=== PATIENT | male | born 1945 | race African-American/Black ===

== ENCOUNTER 2020-02-10 22:43 | Emergency (ER) | payer OTHER ==
[~2020-02-10] VITALS: Ht 167.6 cm; Wt 127.0 kg
[2020-02-10] MEDS ORDERED: KETOROLAC 60MG/2ML VIAL IM ONE (23:15)
[2020-02-10] MEDS ORDERED: PREDNISONE 20MG TABLET PO ONE (23:15)
[2020-02-10 23:45] LABS: CHLORIDE 110 mEq/L (98-107)
[2020-02-10 23:46] LABS: HEMATOCRIT 31.2 % (42.0-52.0); HEMOGLOBIN 10.6 g/dL (14.0-18.0); MEAN CORPUSCULAR HEMOGLOBIN 29.4 pg (28.0-32.0); MEAN CORPUSCULAR VOLUME 86.7 fL (80.0-94.0); PLATELET 196 x1000/uL (130-400); RED CELL DISTRIBUTION WIDTH 15.3 % (11.6-14.6)
[2020-02-11 03:00] VITALS: BP 145/87
== END 2020-02-11 03:43 | disposition home or self-care (01) ==
LOC: ER 22:43
DX: R51.9 Headache, unspecified (principal); I10 Essential (primary) hypertension; Z95.1 Presence of aortocoronary bypass graft; Z86.73 Personal history of transient ischemic attack (TIA), and cerebral infarction without residual deficits
CPT/HCPCS: 36415; 70450; 80053; 85027; 85651; 86140; 93005; 96372; 99285; J1885; J7512

== ENCOUNTER 2022-10-24 08:07 | Inpatient (IN) | payer MEDICARE, OTHER ==
[~2022-10-24] VITALS: Ht 350.5 cm; Wt 122.9 kg
[~2022-10-24 08:07] MED LIST: AMLO5TAB4 MT; TEMA15CA MT; WARF-53 MT
[2022-10-24 09:08] LABS: BASOPHILS % 1.1 % (0.0-2.0); EOSINOPHILS % 0.7 % (0.0-5.0); HEMATOCRIT. 37.4 % (42.0-52.0); HEMOGLOBIN. 12.3 g/dL (14.0-18.0); LYMPHOCYTES % 22.8 % (20.0-50.0); MEAN CORPUSCULAR HEMOGLOBIN 28.2 pg (28.0-32.0); MEAN CORPUSCULAR VOLUME 86.1 fL (80.0-94.0); MEAN PLATELET VOLUME 7.5 fl (7.4-10.4); MONOCYTES % 12.6 % (2.0-8.0); NEUTROPHILS % 62.8 % (40.0-76.0); PLATELET 216 x1000/uL (130-400); RED BLOOD CELL COUNT 4.35 mill/uL (4.7-6.1); RED CELL DISTRIBUTION WIDTH 15.5 % (11.6-14.6)
[2022-10-24 09:32] LABS: CLARITY URINE CLEAR (CLEAR); COLOR URINE YELLOW (YELLOW); KETONES URINE NEGATIVE (NEGATIVE); LEUKOCYTE ESTERASE URINE NEGATIVE (NEGATIVE); NITRITE URINE NEGATIVE (NEGATIVE); OCCULT BLOOD URINE NEGATIVE (NEGATIVE); PH URINE 5.5 (4.5-8.0); PROTEIN URINE 1+ (NEGATIVE); SPECIFIC GRAVITY URINE 1.006 (1.005-1.030); UROBILINOGEN URINE 0.2 E.U./dL (0.2-1.0)
[2022-10-24] MEDS ORDERED: HYDRALAZINE 20MG/ML VIAL IV ONE (10:00)
[2022-10-24 10:26] LABS: CHLORIDE 106 mEq/L (98-107)
[2022-10-24] MEDS ORDERED: ENOXAPARIN 80MG/0.8ML SYR SUBCUT ONE (12:00)
[2022-10-24] MEDS ORDERED: NITROGLYCERIN 0.4MG TABLET SL SL PRN (13:00)
[2022-10-24] MEDS ORDERED: CLONIDINE 0.1MG TABLET PO PRN (13:00)
[2022-10-24] MEDS ORDERED: IPRATROPIUM/ALBUTEROL 0.5-3(2.5)MG/3ML NEB NEB PRN (13:00)
[2022-10-24] MEDS ORDERED: DOCUSATE SODIUM 100MG CAPSULE PO PRN (13:00)
[2022-10-24] MEDS ORDERED: GUAIFENESIN 200MG/10ML SUGAR FREE UDC PO PRN (13:00)
[2022-10-24] MEDS ORDERED: TRAMADOL 50MG TABLET PO PRN (13:00)
[2022-10-24] MEDS ORDERED: ONDANSETRON HCL 4MG/2ML INJ IV PRN (13:00)
[2022-10-24] MEDS ORDERED: ACETAMINOPHEN 325MG TABLET PO PRN ×2 (13:00)
[2022-10-24] MEDS ORDERED: MAGNESIUM/ALUMINUM HYDROXIDE/SIMETHICONE 30ML UDC PO PRN (13:00)
[2022-10-24] MEDS: AMLODIPINE 5MG TABLET PO SCH (13:54)
[2022-10-24 16:00] VITALS: BP 144/88; PULSE 70; RESP 20; TEMP 98.1
[2022-10-24 17:36] LABS: T4 FREE 0.85 ng/dL (0.76-1.46)
[2022-10-24 17:51] LABS: VITAMIN B12 SERUM 344 pg/mL (211-911)
[2022-10-24] MEDS: NITROGLYCERIN OINT 1GM/INCH UDPKT TD SCH ×2 (19:29→21:39)
[2022-10-24] MEDS: ENOXAPARIN 40MG/0.4ML SYR SUBCUT SCH (19:30)
[2022-10-24 20:00] VITALS: BP 123/63; PULSE 71; RESP 20; TEMP 97.9
[2022-10-24] MEDS ORDERED: ZOLPIDEM TARTRATE 5MG TABLET PO PRN (21:00)
[2022-10-24 21:39] LABS: CREATINE KINASE 66 IU/L (39-308); CREATINE KINASE MB FRACTION < 1.0 ng/mL (0.5-3.6)
[2022-10-24] MEDS: FAMOTIDINE 20MG TABLET PO SCH (21:39)
[2022-10-24] MEDS ORDERED: TRAM50TA3 PO (22:58)
[2022-10-24] MEDS ORDERED: ATOR10TA69 PO (22:58)
[2022-10-24] MEDS ORDERED: ONDA4TAB50 PO (22:58)
[2022-10-24] MEDS ORDERED: TRAZ-251 PO (22:58)
[2022-10-24] MEDS ORDERED: FURO-151 PO (22:58)
[2022-10-24] MEDS ORDERED: NALO4SPR NS (22:58)
[2022-10-24] MEDS ORDERED: BISO5TAB13 PO (22:58)
[2022-10-24] MEDS ORDERED: WARF-53 PO (22:58)
[2022-10-24] MEDS ORDERED: HYDR-4134 PO (22:58)
[2022-10-25] VITALS (7 sets, daily range): BP systolic 120–148; BP diastolic 59–85; PULSE 70–73; RESP 17–20; TEMP 96.9–98.6; O2SAT 99
[2022-10-25] MEDS: FUROSEMIDE 40MG/4ML VIAL IVP SCH ×4 (00:34→17:08)
[2022-10-25 01:07] LABS: CREATINE KINASE 57 IU/L (39-308); CREATINE KINASE MB FRACTION < 1.0 ng/mL (0.5-3.6)
[2022-10-25 01:12] LABS: HEPATITIS B SURFACE ANTIGEN NEGATIVE
[2022-10-25 03:28] LABS: *AMPHETAMINES SCREEN URINE NEGATIVE (NEGATIVE); *BARBITURATES SCREEN URINE NEGATIVE (NEGATIVE); *BENZODIAZEPINES SCREEN URINE NEGATIVE (NEGATIVE); *COCAINE SCREEN URINE NEGATIVE (NEGATIVE); CANNABINOID URINE SCREEN NEGATIVE (NEGATIVE); METHADONE URINE SCREEN NEGATIVE (NEGATIVE); OPIATES URINE SCREEN NEGATIVE (NEGATIVE); PHENCYCLIDINE URINE SCREEN NEGATIVE (NEGATIVE)
[2022-10-25] MEDS: ENOXAPARIN 40MG/0.4ML SYR SUBCUT SCH (05:33)
[2022-10-25] MEDS: NITROGLYCERIN OINT 1GM/INCH UDPKT TD SCH ×3 (05:34→22:03)
[2022-10-25 07:01] LABS: BASOPHILS % 0.7 % (0.0-2.0); EOSINOPHILS % 1.2 % (0.0-5.0); HEMATOCRIT. 35.3 % (42.0-52.0); LYMPHOCYTES % 26.4 % (20.0-50.0); MEAN CORPUSCULAR HEMOGLOBIN 29.1 pg (28.0-32.0); MEAN CORPUSCULAR VOLUME 85.8 fL (80.0-94.0); MEAN PLATELET VOLUME 7.8 fl (7.4-10.4); MONOCYTES % 14.9 % (2.0-8.0); NEUTROPHILS % 56.8 % (40.0-76.0); PLATELET 222 x1000/uL (130-400); RED BLOOD CELL COUNT 4.12 mill/uL (4.7-6.1); RED CELL DISTRIBUTION WIDTH 15.5 % (11.6-14.6)
[2022-10-25 07:07] LABS: INR 1.9; PROTHROMBIN TIME 19.3 sec (9.6-11.0)
[2022-10-25 07:39] LABS: CHLORIDE 103 mEq/L (98-107)
[2022-10-25 08:06] LABS: PHOSPHORUS 2.9 mg/dL (2.5-4.9)
[2022-10-25] MEDS: FAMOTIDINE 20MG TABLET PO SCH ×2 (08:46→21:58)
[2022-10-25] MEDS: AMLODIPINE 5MG TABLET PO SCH (08:47)
[2022-10-25] MEDS ORDERED: ASPIRIN 325MG EC TABLET PO SCH (09:00)
[2022-10-25] MEDS ORDERED: WARFARIN SODIUM 7.5MG TABLET PO SCH (18:00)
[2022-10-25] MEDS ORDERED: NALOXONE HCL 0.4MG/ML VIAL IV PRN (20:45)
== END 2022-10-26 00:01 | disposition short-term general hospital (02) | DRG 305 ==
LOC: ER 08:34 → 8WST 12:16 → EDBEDREQ 12:42 → EDBEDREQTM 12:42
PROVIDERS: ADMIT Internal Medicine; ATTEND Internal Medicine
DX: I16.1 Hypertensive emergency (principal); E87.1 Hypo-osmolality and hyponatremia; I48.19 Other persistent atrial fibrillation; I48.92 Unspecified atrial flutter; Z68.1 Body mass index [BMI] 19.9 or less, adult; I42.9 Cardiomyopathy, unspecified; I24.8 Other forms of acute ischemic heart disease; G47.33 Obstructive sleep apnea (adult) (pediatric); I10 Essential (primary) hypertension; N28.1 Cyst of kidney, acquired; Z20.822 Contact with and (suspected) exposure to COVID-19; G47.00 Insomnia, unspecified; I35.9 Nonrheumatic aortic valve disorder, unspecified; F51.04 Psychophysiologic insomnia; E66.01 Morbid (severe) obesity due to excess calories; I25.2 Old myocardial infarction; Z79.01 Long term (current) use of anticoagulants; Z79.899 Other long term (current) drug therapy; Z95.0 Presence of cardiac pacemaker; Z86.73 Personal history of transient ischemic attack (TIA), and cerebral infarction without residual deficits; Z95.2 Presence of prosthetic heart valve; Z87.01 Personal history of pneumonia (recurrent)
CPT/HCPCS: 36415; 71045; 76770; 80053; 80061; 80305; 81003; 82550; 82553; 82607; 82746; 82962; 83036; 83540; 83550; 83735; 83880; 84100; 84439; 84443; 84484; 85025; 86803; 87340; 87426; 93005; 93306; 93970; 99285; J0360; J1650; J1940

== ENCOUNTER 2022-12-31 15:54 | Emergency (ER) | payer OTHER ==
[~2022-12-31] VITALS: Ht 170.2 cm; Wt 87.0 kg
[~2022-12-31 15:54] MED LIST changes: +ATOR10TA69 PO; +BISO5TAB13 PO; +HYDR-4134 PO; +ISOS20TA8 PO; +NALO4SPR NS; +ONDA4TAB50 PO; -TEMA15CA MT; +TEMA15CA PO; +TRAZ-251 PO; -WARF-53 MT; +WARF-53 PO; +ZOLP5TAB8 PO
[2022-12-31 15:56] VITALS: O2SAT 99
[2022-12-31] MEDS ORDERED: MECLIZINE 25MG TABLET PO NR (17:45)
[2022-12-31] MEDS ORDERED: ONDANSETRON 4MG ODT PO ONE (17:45)
[2022-12-31 18:32] LABS: BASOPHILS % 0.8 % (0.0-2.0); EOSINOPHILS % 0.3 % (0.0-5.0); HEMOGLOBIN. 12.8 g/dL (14.0-18.0); LYMPHOCYTES % 24.6 % (20.0-50.0); MEAN CORPUSCULAR HEMOGLOBIN 28.3 pg (28.0-32.0); MEAN CORPUSCULAR HGB CONC 32.8 g/dL (31.0-37.0); MEAN CORPUSCULAR VOLUME 86.3 fL (80.0-94.0); MEAN PLATELET VOLUME 7.5 fl (7.4-10.4); MONOCYTES % 10.3 % (2.0-8.0); PLATELET 233 x1000/uL (130-400); RED BLOOD CELL COUNT 4.52 mill/uL (4.7-6.1); RED CELL DISTRIBUTION WIDTH 14.9 % (11.6-14.6)
[2022-12-31 18:57] LABS: CHLORIDE 98 mEq/L (98-107); INDEX HEMOLYSI 1 (1-3); INDEX ICTERIC 1 (1-4); INDEX LIPEMIC 1 (1-3); POTASSIUM 3.4 mEq/L (3.5-5.1); SODIUM 129 mEq/L (136-145)
[2022-12-31 19:05] LABS: ALANINE AMINOTRANSFERASE 21 IU/L (13-61); ALBUMIN 3.2 g/dL (3.4-5.0); ASPARTATE AMINOTRANSFERASE 20 IU/L (15-37); BILIRUBIN TOTAL 0.5 mg/dL (0.1-1.0); CARBON DIOXIDE 23 mEq/L (21-32); CREATININE 1.6 mg/dL (0.6-1.3); GLUCOSE 105 mg/dL (70-105); PROTEIN TOTAL 8.9 g/dL (6.0-8.3); UREA NITROGEN BLOOD 17 mg/dL (7-21)
[2022-12-31 19:12] LABS: CALCIUM 8.4 mg/dL (8.5-10.1)
[2022-12-31 19:15] LABS: TROPONIN I HIGH SENSITIVITY 387 ng/L (<78)
[2022-12-31] MEDS ORDERED: TRAMADOL HCL/ACETAMINOPHEN 37.5/325MG TABLET PO PRN (19:45)
[2022-12-31] MEDS ORDERED: MECLIZINE 12.5MG TABLET PO NR (19:45)
[2022-12-31] MEDS ORDERED: MECL-299 MT (20:45)
[2022-12-31 21:00] VITALS: BP 140/53; PULSE 68; RESP 16; TEMP 98.8
== END 2022-12-31 21:10 | disposition home or self-care (01) ==
LOC: ER 15:54
DX: R42 Dizziness and giddiness (principal); R11.0 Nausea; R51.9 Headache, unspecified; I10 Essential (primary) hypertension; I25.2 Old myocardial infarction; Z86.73 Personal history of transient ischemic attack (TIA), and cerebral infarction without residual deficits; F12.10 Cannabis abuse, uncomplicated
CPT/HCPCS: 99285; 71045; 80053; 85025; 84484; 36415; 93005; J8597 ×2; Q0162

== ENCOUNTER 2023-04-01 23:40 | Emergency (ER) | payer OTHER ==
[~2023-04-01] VITALS: Ht 172.7 cm; Wt 99.0 kg
[~2023-04-01 23:40] MED LIST changes: +MECL-299 MT
[2023-04-01 23:41] VITALS: O2SAT 100
[2023-04-02] MEDS ORDERED: ACETAMINOPHEN 325MG TABLET PO STA (01:57)
[2023-04-02] MEDS ORDERED: LACTATED RINGERS 500 ML IV SCH (02:00)
[2023-04-02] MEDS ORDERED: METOCLOPRAMIDE HCL 10MG/2ML VIAL IV ONE (02:00)
[2023-04-02 02:40] VITALS: TEMP 98.5
[2023-04-02 02:40] LABS: BASOPHILS % 1.1 % (0.0-2.0); EOSINOPHILS % 0.5 % (0.0-5.0); HEMATOCRIT. 38.7 % (42.0-52.0); HEMOGLOBIN. 12.5 g/dL (14.0-18.0); LYMPHOCYTES % 24.4 % (20.0-50.0); MEAN CORPUSCULAR HEMOGLOBIN 28.6 pg (28.0-32.0); MEAN CORPUSCULAR HGB CONC 32.3 g/dL (31.0-37.0); MEAN CORPUSCULAR VOLUME 88.5 fL (80.0-94.0); MEAN PLATELET VOLUME 7.8 fl (7.4-10.4); MONOCYTES % 12.6 % (2.0-8.0); NEUTROPHILS % 61.4 % (40.0-76.0); PLATELET 230 x1000/uL (130-400); RED BLOOD CELL COUNT 4.38 mill/uL (4.7-6.1); WHITE BLOOD COUNT 5.9 x1000/uL (4.5-11.0)
[2023-04-02 02:46] LABS: ALANINE AMINOTRANSFERASE 22 IU/L (10-49); ASPARTATE AMINOTRANSFERASE 25 IU/L (<34); BILIRUBIN TOTAL 0.2 mg/dL (0.1-1.0); CALCIUM 9.1 mg/dL (8.7-10.4); CARBON DIOXIDE 22 mEq/L (21-32); CHLORIDE 109 mEq/L (98-107); CREATININE 1.5 mg/dL (0.6-1.3); GLUCOSE 121 mg/dL (70-105); POTASSIUM 4.3 mEq/L (3.5-5.1); PROTEIN TOTAL 8.1 g/dL (6.0-8.3); SODIUM 135 mEq/L (136-145); UREA NITROGEN BLOOD 17 mg/dL (9-23)
[2023-04-02 04:15] VITALS: BP 193/89; PULSE 70; RESP 16
== END 2023-04-02 05:35 | disposition home or self-care (01) ==
LOC: ER 23:40
DX: R51.9 Headache, unspecified (principal); I11.9 Hypertensive heart disease without heart failure; I25.2 Old myocardial infarction; Z86.73 Personal history of transient ischemic attack (TIA), and cerebral infarction without residual deficits
CPT/HCPCS: 99285; 96374; 96361; 70450; 80053; 85025; 36415; J2765

== ENCOUNTER 2023-11-06 16:57 | Emergency (ER) | payer MEDICARE, OTHER ==
[~2023-11-06] VITALS: Ht 167.6 cm; Wt 100.0 kg
[~2023-11-06 16:57] MED LIST changes: -HYDR-4134 PO; +HYDR25TA78 PO
[2023-11-06 17:02] VITALS: O2SAT 99
[2023-11-06 18:24] LABS: BASOPHILS % 1.2 % (0.0-2.0); EOSINOPHILS % 1.8 % (0.0-5.0); HEMATOCRIT. 35.7 % (42.0-52.0); HEMOGLOBIN. 11.5 g/dL (14.0-18.0); LYMPHOCYTES % 28.2 % (20.0-50.0); MEAN CORPUSCULAR HEMOGLOBIN 28.4 pg (28.0-32.0); MEAN CORPUSCULAR HGB CONC 32.2 g/dL (31.0-37.0); MEAN CORPUSCULAR VOLUME 88.4 fL (80.0-94.0); MEAN PLATELET VOLUME 7.7 fl (7.4-10.4); MONOCYTES % 12.2 % (2.0-8.0); NEUTROPHILS % 56.6 % (40.0-76.0); PLATELET 273 x1000/uL (130-400); RED BLOOD CELL COUNT 4.04 mill/uL (4.7-6.1); RED CELL DISTRIBUTION WIDTH 14.6 % (11.6-14.6); WHITE BLOOD COUNT 6.4 x1000/uL (4.5-11.0)
[2023-11-06] MEDS: IBUPROFEN 600MG TABLET PO ONE (18:24)
[2023-11-06 18:31] LABS: CHLORIDE 108 mEq/L (98-107); POTASSIUM 4.4 mEq/L (3.5-5.1); SODIUM 136 mEq/L (136-145)
[2023-11-06 18:32] LABS: CARBON DIOXIDE 19 mEq/L (21-32)
[2023-11-06 18:33] LABS: CALCIUM 9.4 mg/dL (8.7-10.4)
[2023-11-06 18:37] LABS: CREATININE 1.5 mg/dL (0.6-1.3); GLUCOSE 97 mg/dL (70-105)
[2023-11-06 18:38] LABS: UREA NITROGEN BLOOD 17 mg/dL (9-23)
[2023-11-06 18:39] LABS: ALANINE AMINOTRANSFERASE 36 IU/L (10-49); ALBUMIN 4.1 g/dL (3.2-4.8); ASPARTATE AMINOTRANSFERASE 30 IU/L (<34)
[2023-11-06 18:40] LABS: BILIRUBIN TOTAL 0.2 mg/dL (0.1-1.0); PROTEIN TOTAL 7.3 g/dL (6.0-8.3)
[2023-11-06] MEDS ORDERED: AMOX1TAB16 MT (18:46)
[2023-11-06] MEDS ORDERED: ACET-2708 MT (18:46)
[2023-11-06] MEDS: FUROSEMIDE 40MG TABLET PO ONE (19:19)
[2023-11-06 20:33] LABS: TROPONIN I HIGH SENSITIVITY 148 ng/L (3.0-53)
[2023-11-06] MEDS: FUROSEMIDE 40MG/4ML VIAL IVP ONE (22:19)
[2023-11-07] MEDS ORDERED: FURO-151 MT (00:08)
[2023-11-07] MEDS: HYDROCODONE/ACETAMINOPHEN 5/325MG TABLET PO ONE (00:40)
[2023-11-07] MEDS: AMOXICILLIN/POTASSIUM CLAVULANATE 875/125MG TAB PO ONE (00:40)
[2023-11-07 00:51] VITALS: BP 132/78; PULSE 77; RESP 16; TEMP 98.6
== END 2023-11-07 00:53 | disposition home or self-care (01) ==
LOC: ER 16:57
DX: K04.7 Periapical abscess without sinus (principal); I21.4 Non-ST elevation (NSTEMI) myocardial infarction; N17.9 Acute kidney failure, unspecified; E78.00 Pure hypercholesterolemia, unspecified; I25.2 Old myocardial infarction; I11.0 Hypertensive heart disease with heart failure; F19.90 Other psychoactive substance use, unspecified, uncomplicated; Z98.890 Other specified postprocedural states
CPT/HCPCS: 99285; 96374; 71045; 80053; 83880; 85025; 84484; 36415; 93005; J1940

== ENCOUNTER 2024-01-13 01:29 | Emergency (ER) | payer MEDICARE, OTHER ==
[~2024-01-13] VITALS: Ht 182.9 cm; Wt 106.0 kg
[~2024-01-13 01:29] MED LIST changes: +ACET-2708 MT; +AMOX1TAB16 MT; +FURO-151 MT
[2024-01-13 01:32] VITALS: O2SAT 99
[2024-01-13] MEDS: ONDANSETRON HCL 4MG/2ML INJ IV ONE (02:40)
[2024-01-13] MEDS: PANTOPRAZOLE SODIUM 40 MG/VIAL IV ONE (02:40)
[2024-01-13] MEDS: ACETAMINOPHEN 1000MG/100ML 100 ML IV ONE (02:40)
[2024-01-13] MEDS: MAGNESIUM/ALUMINUM HYDROXIDE/SIMETHICONE 30ML UDC PO ONE (02:40)
[2024-01-13 02:51] LABS: CHLORIDE 106 mEq/L (98-107); HEMATOCRIT. 38.6 % (42.0-52.0); HEMOGLOBIN. 12.1 g/dL (14.0-18.0); MEAN CORPUSCULAR HEMOGLOBIN 28.1 pg (28.0-32.0); MEAN CORPUSCULAR HGB CONC 31.3 g/dL (31.0-37.0); MEAN CORPUSCULAR VOLUME 89.7 fL (80.0-94.0); MEAN PLATELET VOLUME 7.9 fl (7.4-10.4); PLATELET 193 x1000/uL (130-400); POTASSIUM 4.1 mEq/L (3.5-5.1); RED CELL DISTRIBUTION WIDTH 16.5 % (11.6-14.6); SODIUM 135 mEq/L (136-145); WHITE BLOOD COUNT 4.2 x1000/uL (4.5-11.0)
[2024-01-13 02:52] LABS: CARBON DIOXIDE 22 mEq/L (21-32); DIFFERENTIAL COMMENT 1
[2024-01-13 02:53] LABS: CALCIUM 9.1 mg/dL (8.7-10.4)
[2024-01-13 02:57] LABS: GLUCOSE 113 mg/dL (70-105)
[2024-01-13 02:58] LABS: UREA NITROGEN BLOOD 28 mg/dL (9-23)
[2024-01-13 02:59] LABS: INR 1.8; PARTIAL THROMBOPLASTIN TIME 32.1 sec (23.4-31.0); PROTHROMBIN TIME 19.3 sec (9.6-11.0)
[2024-01-13 03:04] LABS: CLARITY URINE CLEAR (CLEAR); COLOR URINE YELLOW (YELLOW); GLUCOSE URINE NEGATIVE (NEGATIVE); KETONES URINE NEGATIVE (NEGATIVE); LEUKOCYTE ESTERASE URINE NEGATIVE (NEGATIVE); NITRITE URINE NEGATIVE (NEGATIVE); OCCULT BLOOD URINE NEGATIVE (NEGATIVE); PROTEIN URINE TRACE (NEGATIVE); SPECIFIC GRAVITY URINE 1.007 (1.005-1.030); UROBILINOGEN URINE 0.2 E.U./dL (0.2-1.0)
[2024-01-13 03:18] LABS: ETHANOL BLOOD < 10 mg/dL (<10); TROPONIN I HIGH SENSITIVITY 88 ng/L (3.0-53)
[2024-01-13 03:33] LABS: *AMPHETAMINES SCREEN URINE NEGATIVE (NEGATIVE); *BARBITURATES SCREEN URINE NEGATIVE (NEGATIVE); *BENZODIAZEPINES SCREEN URINE NEGATIVE (NEGATIVE); *COCAINE SCREEN URINE NEGATIVE (NEGATIVE); CANNABINOID URINE SCREEN NEGATIVE (NEGATIVE); ECSTASY MDMA SCREEN URINE NEGATIVE (NEGATIVE); METHADONE URINE SCREEN NEGATIVE (NEGATIVE); OPIATES URINE SCREEN NEGATIVE (NEGATIVE); PHENCYCLIDINE URINE SCREEN NEGATIVE (NEGATIVE)
[2024-01-13 04:57] LABS: SQUAMOUS EPITHELIAL CELL URINE FEW /lpf (RARE/1+)
[2024-01-13 04:59] LABS: BACTERIA URINE NONE SEEN; RBC URINE 0-2 /hpf (0-2); WBC URINE 0-2 /hpf (0-2)
[2024-01-13] MEDS: MORPHINE SULFATE 4 MG/ML INJ (FOR IV/IM USE) IV NR (05:18)
[2024-01-13 05:36] LABS: TROPONIN I HIGH SENSITIVITY 87 ng/L (3.0-53)
[2024-01-13 07:14] LABS: PLATELET ESTIMATE NORMAL
[2024-01-13] MEDS ORDERED: ACETAMINOPHEN 325MG TABLET PO PRN (07:45)
[2024-01-13] MEDS ORDERED: ONDANSETRON HCL 4MG/2ML INJ IV PRN (07:45)
[2024-01-13] MEDS ORDERED: IPRATROPIUM/ALBUTEROL 0.5-3(2.5)MG/3ML NEB HHN PRN (07:45)
[2024-01-13] MEDS: ACETAMINOPHEN 325MG TABLET PO ONE (07:50)
[2024-01-13 07:53] VITALS: BP 135/77; PULSE 70; RESP 18; TEMP 36.28068; O2SAT 99
== END 2024-01-13 08:05 | disposition short-term general hospital (02) ==
LOC: ER 01:29
DX: R07.89 Other chest pain (principal); N17.9 Acute kidney failure, unspecified; I25.2 Old myocardial infarction; I11.9 Hypertensive heart disease without heart failure; F19.90 Other psychoactive substance use, unspecified, uncomplicated; D64.9 Anemia, unspecified; Z95.0 Presence of cardiac pacemaker; Z86.73 Personal history of transient ischemic attack (TIA), and cerebral infarction without residual deficits; Z79.899 Other long term (current) drug therapy
CPT/HCPCS: 80305; 80048; 81003; 80320; 83880; 83605; 83690; 85025; 85610; 85730; 84484; 36415; 71045; 74176; 93005; 96368; 96365; 96375; 99285; J2405; J2470; J2270; G0480; J0131